=== PATIENT | male | born 1975 | race Asian ===

== ENCOUNTER 2020-02-25 18:28 | Emergency (ER) | payer MEDICAID ==
[~2020-02-25] VITALS: Ht 167.6 cm; Wt 63.5 kg
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
[2020-02-25 18:30] VITALS: BP 130/86
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
[2020-02-25] MEDS ORDERED: ACETAMINOPHEN325 M1 ORAL (19:21)
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
== END 2020-02-25 19:40 | disposition home or self-care (01) ==
LOC: EDBD 18:28 → EMR 19:40
DX: S09.90XA Unspecified injury of head, initial encounter (principal); S06.0X9A Concussion with loss of consciousness of unspecified duration, initial encounter; W50.1XXA Accidental kick by another person, initial encounter; Y92.9 Unspecified place or not applicable; F17.210 Nicotine dependence, cigarettes, uncomplicated
CPT/HCPCS: 70450; Z7502; 99284